=== PATIENT | male | born 1955 | race African-American/Black ===

== ENCOUNTER 2017-12-04 01:00 | Emergency (ER) | payer MEDICARE, MEDICAID ==
[2017-12-04 01:53] LABS: #Basophils 0.1 thou/uL (0.0-0.2); #Eosinphils 0.3 thou/uL (0.0-0.7); #Lymphocytes 2.2 thou/uL (1.20-3.40); #Monocytes 0.6 thou/uL (0.11-0.59); #Neutrophils 4.2 thou/uL (1.40-6.50); %Basophils 0.8 % (0.0-1.0); %Eosinophils 3.9 % (0.0-10.0); %Lymphocytes 30.5 % (21.0-51.0); %Monocytes 7.7 % (0.0-10.0); %Neutrophils 57.1 % (42.0-75.0); Hemoglobin 12.1 g/dL (14.0-18.0); Mean Corpuscular HGB CONC 34.5 g/dL (32.0-36.0); Mean Corpuscular Volume 95.6 fL (78.0-98.0); Platelet Count 174 thou/uL (130-400); RBC Distribution Width 12.9 % (11.5-14.5); Red Blood Cell (RBC) Count 3.67 mill/uL (4.70-6.10); White Blood Cell (WBC) Count 7.4 thou/uL (4.8-10.8)
[2017-12-04 02:13] LABS: ALT (SGPT) 24 U/L (8-55); AST (SGOT) 20 U/L (5-34); Albumin 4.1 g/dL (3.4-4.8); Alcohol Less than 10 mg/dL (Less than 10); Alkaline Phosphatase 172 U/L (40-150); Anion Gap 13 mmol/L (10-20); BUN (Urea Nitrogen) 28 mg/dL (8.4-25.7); Bilirubin, Total 0.3 mg/dL (0.2-1.2); Calc. Creatinine Clearance 0 mL/min (70-130); Calcium 8.7 mg/dL (7.8-10.44); Carbon Dioxide 21 mmol/L (23-31); Chloride 106 mmol/L (98-107); Estimated GFR-MDRD 56; Glucose 166 mg/dL (80-115); Potassium 4.3 mmol/L (3.5-5.1); Protein, Total 7.1 g/dL (5.8-8.1); Sodium 136 mmol/L (136-145)
[2017-12-04 02:16] LABS: CKMB 3.1 ng/mL (0-6.6); Troponin I Less than 0.010 ng/mL (< 0.028)
[2017-12-04 02:48] LABS: Bilirubin Negative (Negative); Blood, Urine Negative (Negative); Clarity CLEAR (Clear); Glucose, Urine (Dipstick) Negative (Negative); Leukocyte Negative (Negative); Nitrite Negative (Negative); Protein, Urine (Dipstick) Negative (Neg-Trace); Specific Gravity, Urine 1.017 (1.002-1.036); Urobilinogen 0.2 mg/dL (0.2-1.0); pH, Urine 5.5 (5.0-9.0)
--- NOTE | 2017-12-04 07:22 | CT ---
CT HEAD NONCONTRAST: Date: 12/04/17 INDICATION: Syncope. FINDINGS: There is age-appropriate size of ventricular system. Mild chronic ischemic disease is seen within the cerebral white matter. No acute intracranial hemorrhage, mass effect, or midline shift. There is mil d mucosal thickening within the visualized paranasal sinuses. IMPRESSION: 1. No acute intracranial abnormality. 2. Mild chronic ischemic disease. Should neurologic deficits persist, consider brain MRI for further evaluation, in the absence of cont raindications to MR imaging. POS: RENNY
--- NOTE | 2017-12-04 07:59 | RAD ---
PORTABLE CHEST 1 VIEW: DATE: 12/04/2017. TIME: 1:13 a.m. HISTORY: Syncope, hypotension. FINDINGS: The heart size is normal. There is elevation of the right hemidiaphragm. No focal areas of consolid ation, pneumothoraces, or pleural effusions are seen. There are postop changes in the lower thoracic spine. IMPRESSION: No acute process. POS: DAVID
--- NOTE | 2017-12-05 17:13 | EKG ---
Test Reason : Blood Pressure : / mmHG Vent. Rate : 058 BPM Atrial Rate : 058 BPM P-R Int : 144 ms QRS Dur : 084 ms QT Int : 466 ms P-R-T Axes : -12 -02 053 degrees QTc Int : 457 ms Sinus bradycardia Otherwise normal ECG Confirmed by BLUE DIAMOND ([id number]), marketing editor CARLENE GALICIA ([id number] on 12/05/2017 5:12:50 PM Referred By: Confirmed By:BLUE DIAMOND
== END 2017-12-04 03:15 | disposition home or self-care (01) ==
LOC: ERS 01:00
DX: R55 Syncope and collapse (principal); E11.9 Type 2 diabetes mellitus without complications; I10 Essential (primary) hypertension; E78.5 Hyperlipidemia, unspecified; Z86.73 Personal history of transient ischemic attack (TIA), and cerebral infarction without residual deficits; Z86.19 Personal history of other infectious and parasitic diseases; F17.210 Nicotine dependence, cigarettes, uncomplicated; Z79.899 Other long term (current) drug therapy
CPT/HCPCS: 36415; 70450; 71045; 80053; 80307; 81003; 82553; 83880; 84484; 85025; 93005; 96360